=== PATIENT | male | born 1945 | race Hispanic/Latino ===

== ENCOUNTER 2017-06-18 07:40 | Day surgery (SDC) | payer OTHER ==
[2017-06-18 09:37] LABS: INR 1.03 (0.87-1.13); Partial Thromboplastin Time 38.3 Sec. (24.2-36.6)
--- NOTE | 2017-06-18 12:09 | Short Stay Summary ---
Short Stay Documentation Date of service: 06/18/17 - History Past Medical History: liver disease - Allergies and Medications Current Medications: Allergies lisinopril Allergy (Unverified 06/18/17 08:46) Swelling throat and face swelling Home Medications Medication Instructions Recorded Confirmed Last Taken Type Aspirin [Aspirin TAB] 325 mg PO QDAY 06/18/17 06/18/17 06/17/17 History Furosemide [Lasix TAB] 40 mg PO QDAY 06/18/17 06/18/17 06/17/17 History Levothyroxine Sodium [Synthroid] 88 mcg PO DAILY 06/18/17 06/18/17 06/17/17 History Pregabalin [Lyrica] 100 mg PO QID 06/18/17 06/18/17 06/17/17 History Spironolactone [Spironolactone] 50 mg PO DAILY 06/18/17 06/18/17 06/17/17 History amLODIPine [Norvasc] 2.5 mg PO DAILY 06/18/17 06/18/17 06/17/17 History tiZANidine [Zanaflex] 4 mg PO QHS 06/18/17 06/18/17 Unknown History - Physical exam General appearance: no acute distress Gastrointestinal: distended - Brief post op/procedure progress note Date of procedure: 06/18/17 Pre-op diagnosis: Ascites, liver disease Post-op diagnosis: same Procedure: US guided paracentesis Anesthesia: local Findings: 18 L of yellow serous fluid removed. Surgeon: PETERSON SOLANO Estimated blood loss: none Specimen disposition: discarded Condition: stable - Disposition Condition at discharge: Stable Disposition: DC-01 TO HOME OR SELFCARE Short Stay Discharge Plan Follow up with: PARIS NARVAEZ MD [Primary Care Provider] - 7 Days
--- NOTE | 2017-06-18 12:23 | Ultrasound Report ---
ULTRASOUND ABDOMEN LIMITED INDICATION: Ascites. COMPARISON: None similar. FINDINGS: Right upper quadrant ultrasound demonstrates diffuse, slightly echogenic coarsening of cirrhotic liver, outlined by ascites. No definite focal suspicious hepatic lesions or biliary dilatation, to the extent assessed. Few small echogenic, shadowing gallstones towards the gallbladder neck, individually measuring to the order of 9 mm incidentally noted. Diffuse exaggerated gallbladder wall thickness measuring up to 6 mm, image 30. Mild pericholecystic ascites also noted. CBD caliber 4 mm at the seth hepatis. Pancreas, IVC and aortic visualization limited, though grossly unremarkable, where felt seen. No hydronephrosis with approximately 10.2 x 4.9 x 5 cm right kidney with cortical thickness of 1.2 cm. Mild increased renal cortical echogenicity also not excluded. CONCLUSION: Cirrhosis, ascites, cholelithiasis, exaggerated gallbladder wall thickness and possible underlying medical renal disease, as described. Please correlate. Patient also having paracentesis today. Thank you for the opportunity to participate in this patient's care.
[2017-06-18] MEDS ORDERED: ALBURX 25% (ALBUMIN) IV ONE ×4 (14:00)
[2017-06-18 16:02] VITALS: BP 100/54
--- NOTE | 2017-06-18 16:04 | Ultrasound Report ---
ULTRASOUND-GUIDED PARACENTESIS INDICATION: Ascites. COMPARISON: None similar. FINDINGS: After explaining the risk and benefits to the patient, written informed consent obtained. Using ultrasound guidance, an appropriate skin site in the left lower quadrant marked. Skin prepped and draped in the usual sterile fashion. 1% Xylocaine used for local anesthesia. Using ultrasound guidance, a 5 Czech Yueh catheter was placed into the fluid collection and 18 L of straw-colored fluid aspirated. No sample sent to laboratory. Catheter removed and hemostasis achieved. Patient tolerated the procedure well and left the radiology department in stable condition. CONCLUSION: Ultrasound guided paracentesis, as described above. IV albumin to be administered. Dr. Tiwari present for and performed the entire procedure. Thank you for the opportunity to participate in this patient's care.
== END 2017-06-18 15:45 | disposition home or self-care (01) ==
LOC: CATHLABREC 07:40 → EDSTATUS 08:30 → CATHLABREC 15:45
PROVIDERS: ATTEND Internal Medicine Gastroenterology
DX: R18.8 Other ascites (principal); Z88.8 Allergy status to other drugs, medicaments and biological substances; Z79.82 Long term (current) use of aspirin; Z79.899 Other long term (current) drug therapy; Z79.01 Long term (current) use of anticoagulants
CPT/HCPCS: 36415; 49083; 76705; 85610; 85730; 96365; 96366; P9047

== ENCOUNTER 2017-07-17 08:11 | Day surgery (SDC) | payer OTHER ==
[2017-07-17 09:17] LABS: Partial Thromboplastin Time 35.2 Sec. (24.2-36.6)
[2017-07-17] MEDS ORDERED: ALBURX 25% (ALBUMIN) IV PRN (10:46)
--- NOTE | 2017-07-17 10:46 | Short Stay Summary ---
Short Stay Documentation Date of service: 07/17/17 Narrative H&P: liver disease - History Principal diagnosis: ascites H&P: obtained from office - Allergies and Medications Current Medications: Allergies lisinopril Allergy (Unverified 06/18/17 08:46) Swelling throat and face swelling Home Medications Medication Instructions Recorded Confirmed Last Taken Type Aspirin [Aspirin TAB] 325 mg PO QDAY 06/18/17 07/17/17 07/10/17 History 325mg Furosemide [Lasix TAB] 40 mg PO QDAY 06/18/17 07/17/17 07/17/17 05:30 History Levothyroxine Sodium [Synthroid] 88 mcg PO DAILY 06/18/17 07/17/17 07/17/17 05: 30 History 80mcg Pregabalin [Lyrica] 100 mg PO QID 06/18/17 07/17/17 07/17/17 05:30 History Spironolactone 50 mg PO DAILY 06/18/17 07/17/17 07/16/17 History 50mg amLODIPine [Norvasc] 2.5 mg PO DAILY 06/18/17 07/17/17 07/17/17 05:30 History tiZANidine [Zanaflex] 4 mg PO QHS 06/18/17 07/17/17 06/19/17 History 4mg - Physical exam General appearance: no acute distress Gastrointestinal: distended - Brief post op/procedure progress note Date of procedure: 07/17/17 Pre-op diagnosis: ascites Post-op diagnosis: same Procedure: US paracentesis Anesthesia: local Findings: large ascites Surgeon: FORD ZEPEDA Estimated blood loss: none Pathology: none Specimen disposition: discarded Condition: stable - Hospital course Hospital course: uneventful - Disposition Condition at discharge: Good Disposition: DC-01 TO HOME OR SELFCARE Short Stay Discharge Plan Follow up with: PARIS NARVAEZ MD [Primary Care Provider] - 7 Days
[2017-07-17] MEDS ORDERED: NORCO 5/325 PO ONE (11:40)
--- NOTE | 2017-07-17 11:44 | Ultrasound Report ---
ULTRASOUND PARACENTESIS History: Ascites. Description of procedure: Informed consent was obtained. Sterile technique was utilized. 1% lidocaine for skin anesthesia. Using ultrasound guidance, a 5 Serbian centesis needle was advanced into the left lower quadrant peritoneal space. There was spontaneous return of clear yellow fluid. 17.4 L of fluid was aspirated and discarded. No complications. Impression: Successful large volume ultrasound guided paracentesis.
[2017-07-17 13:38] VITALS: BP 98/53
== END 2017-07-17 13:50 | disposition home or self-care (01) ==
LOC: CATHLABREC 08:11 → EDSTATUS 09:00 → CATHLABREC 13:50
PROVIDERS: ATTEND Internal Medicine Gastroenterology
DX: R18.8 Other ascites (principal); Z88.8 Allergy status to other drugs, medicaments and biological substances; Z79.82 Long term (current) use of aspirin; Z79.01 Long term (current) use of anticoagulants
CPT/HCPCS: 36415; 49083; 85610; 85730; 96365; P9047

== ENCOUNTER 2017-08-12 10:54 | Day surgery (SDC) | payer OTHER ==
[2017-08-12] MEDS ORDERED: ALBURX 25% (ALBUMIN) IV SCH (17:00)
[2017-08-12] MEDS: ALBURX 25% (ALBUMIN) IV SCH ×2 (17:16→17:39)
[2017-08-12 17:59] VITALS: BP 106/61
--- NOTE | 2017-08-13 08:06 | Ultrasound Report ---
ULTRASOUND PARACENTESIS HISTORY: Ascites. DESCRIPTION OF PROCEDURE: Informed consent was obtained. Sterile technique was utilized. Using ultrasound guidance, a 5 Iranian centesis needle was advanced into the left peritoneal space. There was spontaneous return of clear yellow fluid. 22.1 L of fluid was aspirated and discarded. No complications. IMPRESSION: Successful ultrasound guided large volume paracentesis.
== END 2017-08-12 18:27 | disposition home or self-care (01) ==
LOC: US 10:54 → CATHLABREC 10:54 → EDSTATUS 12:00 → CATHLABREC 18:27
PROVIDERS: ATTEND Internal Medicine Gastroenterology
DX: R18.8 Other ascites (principal); K74.60 Unspecified cirrhosis of liver
CPT/HCPCS: 49083; 96365; 96366; C1729; P9047

== ENCOUNTER 2017-09-16 08:33 | Day surgery (SDC) | payer MEDICARE, OTHER ==
[2017-09-16 09:36] LABS: INR 1.06 (0.87-1.13)
[2017-09-16 09:37] LABS: Partial Thromboplastin Time 34.4 Sec. (24.2-36.6)
[2017-09-16] MEDS ORDERED: ALBURX 25% (ALBUMIN) IV PRN (11:27)
--- NOTE | 2017-09-16 11:27 | Short Stay Summary ---
Short Stay Documentation Date of service: 09/16/17 - History Principal diagnosis: ascites H&P: obtained from office - Allergies and Medications Current Medications: Allergies lisinopril Allergy (Verified 07/17/17 13:45) Swelling throat and face swelling Home Medications Medication Instructions Recorded Confirmed Last Taken Type Aspirin [Aspirin TAB] 325 mg PO QDAY 06/18/17 07/17/17 07/10/17 History 325mg Furosemide [Lasix TAB] 40 mg PO QDAY 06/18/17 07/17/17 07/17/17 05:30 History Levothyroxine Sodium [Synthroid] 88 mcg PO DAILY 06/18/17 07/17/17 07/17/17 05: 30 History 80mcg Pregabalin [Lyrica] 100 mg PO QID 06/18/17 07/17/17 07/17/17 05:30 History Spironolactone 50 mg PO DAILY 06/18/17 07/17/17 07/16/17 History 50mg amLODIPine [Norvasc] 2.5 mg PO DAILY 06/18/17 07/17/17 07/17/17 05:30 History tiZANidine [Zanaflex] 4 mg PO QHS 06/18/17 07/17/17 06/19/17 History 4mg - Physical exam General appearance: no acute distress Gastrointestinal: distended - Brief post op/procedure progress note Date of procedure: 09/16/17 Pre-op diagnosis: ascites Post-op diagnosis: same Procedure: US paracentesis Anesthesia: local Findings: large ascites Surgeon: FORD ZEPEDA Estimated blood loss: none Pathology: none Specimen disposition: discarded Condition: stable - Disposition Condition at discharge: Good Disposition: DC-01 TO HOME OR SELFCARE Short Stay Discharge Plan Follow up with: PARIS NARVAEZ MD [Other] - 7 Days
--- NOTE | 2017-09-16 13:46 | Ultrasound Report ---
ULTRASOUND PARACENTESIS History: Ascites. Description of procedure: Informed consent was obtained. Sterile technique was utilized. 1% lidocaine for skin anesthesia. Using ultrasound guidance, a 5 Telugu centesis needle was advanced into the left lower quadrant peritoneal space. There was spontaneous return of clear yellow fluid. 21 L of fluid was aspirated and discarded. No complications. Impression: Successful large volume ultrasound guided paracentesis.
[2017-09-16 14:41] VITALS: BP 105/42
== END 2017-09-16 15:15 | disposition home or self-care (01) ==
LOC: CATHLABREC 08:33 → EDSTATUS 09:00 → CATHLABREC 15:15
PROVIDERS: ATTEND Internal Medicine Gastroenterology
DX: R18.8 Other ascites (principal); Z79.01 Long term (current) use of anticoagulants; Z88.8 Allergy status to other drugs, medicaments and biological substances; Z79.82 Long term (current) use of aspirin
CPT/HCPCS: 36415; 49083; 85610; 85730; 96365; P9047

== ENCOUNTER 2017-10-06 08:17 | Day surgery (SDC) | payer MEDICARE, OTHER ==
[2017-10-06] MEDS ORDERED: ALBURX 25% (ALBUMIN) IV PRN (11:47)
--- NOTE | 2017-10-06 11:47 | Short Stay Summary ---
Short Stay Documentation Date of service: 10/06/17 - History Principal diagnosis: ascites Past Medical History: liver disease - Allergies and Medications Current Medications: Allergies lisinopril Allergy (Verified 07/17/17 13:45) Swelling throat and face swelling Home Medications Medication Instructions Recorded Confirmed Last Taken Type Aspirin [Aspirin TAB] 325 mg PO QDAY 06/18/17 10/06/17 10/05/17 History Furosemide [Lasix TAB] 40 mg PO QDAY 06/18/17 10/06/17 10/06/17 History Levothyroxine Sodium [Synthroid] 88 mcg PO DAILY 06/18/17 10/06/17 10/06/17 History Pregabalin [Lyrica] 100 mg PO QID 06/18/17 10/06/17 10/06/17 History Spironolactone 50 mg PO DAILY 06/18/17 10/06/17 10/05/17 History amLODIPine [Norvasc] 2.5 mg PO DAILY 06/18/17 10/06/17 10/06/17 History - Physical exam General appearance: no acute distress Gastrointestinal: hypoactive bowel sounds, distended - Brief post op/procedure progress note Date of procedure: 10/06/17 Pre-op diagnosis: ascites Post-op diagnosis: same Procedure: US paracentesis Anesthesia: local Findings: massive ascites Surgeon: FORD ZEPEDA Estimated blood loss: none Pathology: none Specimen disposition: discarded Condition: stable - Disposition Condition at discharge: Good Disposition: DC-01 TO HOME OR SELFCARE Short Stay Discharge Plan Follow up with: PARIS NARVAEZ MD [Primary Care Provider] - 7 Days
--- NOTE | 2017-10-06 13:29 | Ultrasound Report ---
ULTRASOUND PARACENTESIS History: Ascites. Description of procedure: Informed consent was obtained. Sterile technique was utilized. 1% lidocaine for skin anesthesia. Using ultrasound guidance, a 5 Tajik centesis needle was advanced into the left lower quadrant peritoneal space. There was spontaneous return of clear yellow fluid. 23.5 L of fluid was drained and discarded. No complications. Impression: Successful large volume ultrasound guided paracentesis.
[2017-10-06] MEDS ORDERED: ALBURX 25% (ALBUMIN) IV ONE (14:14)
[2017-10-06 15:49] VITALS: BP 100/39
== END 2017-10-06 16:10 | disposition home or self-care (01) ==
LOC: CATHLABREC 08:17 → EDSTATUS 09:00 → CATHLABREC 16:10
PROVIDERS: ATTEND Internal Medicine Gastroenterology
DX: R18.8 Other ascites (principal); Z88.8 Allergy status to other drugs, medicaments and biological substances; Z79.82 Long term (current) use of aspirin
CPT/HCPCS: 49083; 96365; 96366; P9047

== ENCOUNTER 2017-10-23 08:17 | Day surgery (SDC) | payer MEDICARE, OTHER ==
[2017-10-23 10:12] LABS: INR 1.05 (0.87-1.13)
[2017-10-23 10:13] LABS: Partial Thromboplastin Time 33.8 Sec. (24.2-36.6)
[2017-10-23] MEDS ORDERED: ALBURX 25% (ALBUMIN) IV PRN (13:59)
--- NOTE | 2017-10-23 13:59 | Short Stay Summary ---
Short Stay Documentation Date of service: 10/23/17 Narrative H&P: ascites - History Principal diagnosis: ascites H&P: obtained from office Past Medical History: liver disease - Allergies and Medications Current Medications: Allergies lisinopril Allergy (Verified 07/17/17 13:45) Swelling throat and face swelling Home Medications Medication Instructions Recorded Confirmed Last Taken Type Aspirin [Aspirin TAB] 325 mg PO QDAY 06/18/17 10/23/17 10/22/17 History 1900 Furosemide [Lasix TAB] 40 mg PO QDAY 06/18/17 10/23/17 10/22/17 History 40mgh Levothyroxine Sodium [Synthroid] 88 mcg PO DAILY 06/18/17 10/23/17 10/23/17 07: 00 History Pregabalin [Lyrica] 100 mg PO TID 06/18/17 10/23/17 10/23/17 07:00 History 150mg Spironolactone 50 mg PO DAILY 06/18/17 10/23/17 10/22/17 History 25mg amLODIPine [Norvasc] 2.5 mg PO DAILY 06/18/17 10/23/17 10/23/17 07:00 History 2.5mg - Physical exam General appearance: no acute distress Gastrointestinal: distended - Brief post op/procedure progress note Date of procedure: 10/23/17 Pre-op diagnosis: ascites Post-op diagnosis: same Procedure: US paracentesis Anesthesia: local Findings: large ascites Surgeon: FORD ZEPEDA Estimated blood loss: none Pathology: none Specimen disposition: discarded Condition: stable - Disposition Condition at discharge: Good Disposition: DC-01 TO HOME OR SELFCARE Short Stay Discharge Plan Follow up with: PARIS NARVAEZ MD [Primary Care Provider] - 7 Days
[2017-10-23] MEDS ORDERED: ULTRAM PO ONE (15:16)
[2017-10-23 16:25] VITALS: BP 102/41
--- NOTE | 2017-10-27 07:18 | Ultrasound Report ---
ULTRASOUND PARACENTESIS History: Ascites. Description of procedure: Informed consent was obtained. Sterile technique was utilized. 1% lidocaine for skin anesthesia. Using ultrasound guidance, a 5 Romanian centesis needle was advanced into the peritoneal space. There was spontaneous return of clear yellow fluid. 22.2 L of fluid was aspirated and discarded. No labs were ordered. Replacement albumin infusion was performed in the OPU following the procedure. The patient tolerated the procedure without complaint. Impression: Successful ultrasound-guided paracentesis.
== END 2017-10-23 16:43 | disposition home or self-care (01) ==
LOC: CATHLABREC 08:17 → EDSTATUS 09:00 → CATHLABREC 16:43
PROVIDERS: ATTEND Internal Medicine Gastroenterology
DX: R18.8 Other ascites (principal); Z79.01 Long term (current) use of anticoagulants
CPT/HCPCS: 36415; 49083; 85610; 85730; 96365; 96366; P9047

== ENCOUNTER 2017-11-06 08:06 | Day surgery (SDC) | payer MEDICARE, OTHER ==
--- NOTE | 2017-11-06 11:12 | Ultrasound Report ---
ULTRASOUND-GUIDED PARACENTESIS INDICATION: Ascites. COMPARISON: 10/23/2017. FINDINGS: After explaining the risk and benefits to the patient, written informed consent obtained. Using ultrasound guidance, an appropriate skin site in the right lower quadrant marked. Skin prepped and draped in the usual sterile fashion. 1% Xylocaine used for local anesthesia. Using ultrasound guidance, a 5 Kuwaiti Yueh catheter was placed into the fluid collection and 17.3 L of straw-colored fluid aspirated. No sample sent to laboratory. Catheter removed and hemostasis achieved. Patient tolerated the procedure well and left the radiology department in stable condition. CONCLUSION: Ultrasound guided paracentesis, as described above. IV albumin to be administered in the recovery room. Dr. Tiwari present for and performed the entire procedure. Thank you for the opportunity to participate in this patient's care.
[2017-11-06] MEDS ORDERED: ALBURX 25% (ALBUMIN) IV ONE (11:18)
--- NOTE | 2017-11-06 11:21 | Short Stay Summary ---
Short Stay Documentation - History Past Medical History: liver disease - Allergies and Medications Current Medications: Allergies lisinopril Allergy (Verified 07/17/17 13:45) Swelling throat and face swelling Home Medications Medication Instructions Recorded Confirmed Last Taken Type Aspirin [Aspirin TAB] 325 mg PO QDAY 06/18/17 11/06/17 11/05/17 History 325 MG Furosemide [Lasix TAB] 40 mg PO QDAY 06/18/17 11/06/17 11/05/17 History 40 MG Levothyroxine Sodium [Synthroid] 88 mcg PO DAILY 06/18/17 11/06/17 11/05/17 History 88 MCG Pregabalin [Lyrica] 100 mg PO TID 06/18/17 11/06/17 11/05/17 History 100 MG Spironolactone 50 mg PO DAILY 06/18/17 11/06/17 11/05/17 History 50 MG amLODIPine [Norvasc] 2.5 mg PO DAILY 06/18/17 11/06/17 11/05/17 History 2.5 MG - Physical exam General appearance: no acute distress Gastrointestinal: distended - Brief post op/procedure progress note Date of procedure: 11/06/17 Pre-op diagnosis: Ascites Post-op diagnosis: same Procedure: US guided paracentesis Anesthesia: local Findings: 17.3 liters of yellow serous fluid removed. Surgeon: PETERSON SOLANO Estimated blood loss: none Pathology: none Specimen disposition: discarded Condition: stable - Disposition Condition at discharge: Good Disposition: DC-01 TO HOME OR SELFCARE Short Stay Discharge Plan Follow up with: PARIS NARVAEZ MD [Primary Care Provider] - 7 Days
[2017-11-06 14:35] VITALS: BP 95/42
== END 2017-11-06 14:00 | disposition home or self-care (01) ==
LOC: CATHLABREC 08:06 → EDSTATUS 09:00 → CATHLABREC 14:00
PROVIDERS: ATTEND Internal Medicine Gastroenterology
DX: R18.8 Other ascites (principal); Z88.8 Allergy status to other drugs, medicaments and biological substances; Z79.82 Long term (current) use of aspirin
CPT/HCPCS: 49083; 96365; 96366; P9047

== ENCOUNTER 2017-11-20 08:11 | Day surgery (SDC) | payer MEDICARE, OTHER ==
[2017-11-20 10:24] LABS: INR 1.02 (0.87-1.13)
[2017-11-20 10:25] LABS: Partial Thromboplastin Time 33.4 Sec. (24.2-36.6)
[2017-11-20] MEDS ORDERED: ALBURX 25% (ALBUMIN) IV PRN (11:05)
--- NOTE | 2017-11-20 11:05 | Short Stay Summary ---
Short Stay Documentation Date of service: 11/20/17 - History Principal diagnosis: ascites H&P: obtained from office - Allergies and Medications Current Medications: Allergies lisinopril Allergy (Verified 07/17/17 13:45) Swelling throat and face swelling Home Medications Medication Instructions Recorded Confirmed Last Taken Type Aspirin [Aspirin TAB] 325 mg PO QDAY 06/18/17 11/20/17 11/19/17 History Furosemide [Lasix TAB] 40 mg PO QDAY 06/18/17 11/20/17 11/19/17 History Levothyroxine Sodium [Synthroid] 88 mcg PO DAILY 06/18/17 11/20/17 11/20/17 06: 00 History Pregabalin [Lyrica] 100 mg PO TID 06/18/17 11/20/17 11/20/17 06:00 History Spironolactone 50 mg PO DAILY 06/18/17 11/20/17 11/19/17 History Omeprazole 20 mg PO QDAY 11/20/17 11/20/17 11/19/17 History - Physical exam General appearance: no acute distress Gastrointestinal: distended - Brief post op/procedure progress note Date of procedure: 11/20/17 Pre-op diagnosis: ascites Post-op diagnosis: same Procedure: US paracentesis Anesthesia: local Findings: massive ascites Surgeon: FORD ZEPEDA Estimated blood loss: none Pathology: none Specimen disposition: discarded Condition: stable - Hospital course Hospital course: uneventful - Disposition Condition at discharge: Good Disposition: DC-01 TO HOME OR SELFCARE Short Stay Discharge Plan Follow up with: PARIS NARVAEZ MD [Primary Care Provider] - 7 Days
--- NOTE | 2017-11-20 12:51 | Ultrasound Report ---
ULTRASOUND PARACENTESIS History: Ascites, cirrhosis. Description of procedure: Informed consent was obtained. A sterile technique was utilized. Using ultrasound guidance, a 5 German centesis needle was advanced into the left lower quadrant peritoneal space. There was spontaneous return of clear yellow fluid. 14.6 L of fluid was aspirated and discarded. No complications. Impression: Successful ultrasound-guided paracentesis.
[2017-11-20 15:04] VITALS: BP 101/41
== END 2017-11-20 15:10 | disposition home or self-care (01) ==
LOC: CATHLABREC 08:11 → EDSTATUS 09:00 → CATHLABREC 15:10
PROVIDERS: ATTEND Internal Medicine Gastroenterology
DX: R18.8 Other ascites (principal); E03.9 Hypothyroidism, unspecified; I10 Essential (primary) hypertension; Z79.82 Long term (current) use of aspirin; Z79.899 Other long term (current) drug therapy; Z79.01 Long term (current) use of anticoagulants; Z88.8 Allergy status to other drugs, medicaments and biological substances
CPT/HCPCS: 36415; 49083; 85610; 85730; 96365; 96366; P9047

== ENCOUNTER 2017-12-04 08:09 | Day surgery (SDC) | payer MEDICARE, OTHER ==
[2017-12-04] MEDS ORDERED: XYLOCAINE 1% 20 mL ONE ×2 (09:52→09:53)
[2017-12-04] MEDS ORDERED: ALBURX 25% (ALBUMIN) IV PRN (11:33)
--- NOTE | 2017-12-04 11:33 | Procedure Note ---
Date of procedure: 12/04/17 Pre-op diagnosis: ascites Post-op diagnosis: same Procedure: US paracentesis Findings: large ascites Anesthesia: local Surgeon: FORD ZEPEDA Estimated blood loss: none Pathology: none Specimen disposition: discarded Condition: stable Disposition: same day
--- NOTE | 2017-12-04 12:28 | Ultrasound Report ---
ULTRASOUND PARACENTESIS History: Ascites, cirrhosis Description of procedure: Informed consent was obtained. Sterile technique was utilized. 1% lidocaine for skin anesthesia. Using ultrasound guidance, a 5 Cameroonian centesis needle was advanced into the right lower quadrant peritoneal space. There was spontaneous return of clear yellow fluid. 15.1 L of fluid was aspirated and discarded. No complications. Impression: Successful large volume ultrasound guided paracentesis.
[2017-12-04 14:07] VITALS: BP 102/26
== END 2017-12-04 14:20 | disposition home or self-care (01) ==
LOC: CATHLABREC 08:09 → EDSTATUS 09:00 → CATHLABREC 14:20
PROVIDERS: ATTEND Internal Medicine Gastroenterology
DX: R18.8 Other ascites (principal); I10 Essential (primary) hypertension; J44.9 Chronic obstructive pulmonary disease, unspecified; M19.90 Unspecified osteoarthritis, unspecified site; E03.9 Hypothyroidism, unspecified; F17.200 Nicotine dependence, unspecified, uncomplicated; Z79.899 Other long term (current) drug therapy; Z79.82 Long term (current) use of aspirin; Z88.8 Allergy status to other drugs, medicaments and biological substances; Z85.818 Personal history of malignant neoplasm of other sites of lip, oral cavity, and pharynx; Z98.890 Other specified postprocedural states; Z82.49 Family history of ischemic heart disease and other diseases of the circulatory system
CPT/HCPCS: 49083; 96365; 96366; P9047